=== PATIENT | male | born 1990 | race Two or more races ===

== ENCOUNTER 2024-07-31 22:34 | Emergency (ER) | payer BC ==
[2024-07-31] MEDS: Lidocaine 1% 10 ML MDV INJECT ONE (23:26)
[2024-08-01] MEDS: Diphtheria,Pertussis(Acell),Tetanus Vaccine 0.5 ML Syringe IM ONE (00:14)
== END 2024-08-01 01:05 | disposition home or self-care (01) ==
LOC: MW.ED 22:34
DX: S61.211A Laceration without foreign body of left index finger without damage to nail, initial encounter (principal); Z23 Encounter for immunization; Z75.8 Other problems related to medical facilities and other health care; W26.8XXA Contact with other sharp object(s), not elsewhere classified, initial encounter
CPT/HCPCS: 12001; 90471; 90715; 99282; 99282-25; J3490

== ENCOUNTER 2025-02-21 16:23 | Emergency (ER) | payer BC ==
[2025-02-21] MEDS ORDERED: Ketorolac 30 MG/ML SDV IM PRN (16:30)
[2025-02-21] MEDS ORDERED: Acetaminophen 500 MG Tab PO PRN (16:30)
[2025-02-21] MEDS: Ketorolac 30 MG/ML SDV IM ONE (17:28)
[2025-02-21] MEDS: Acetaminophen 500 MG Tab PO ONE (17:29)
== END 2025-02-21 18:36 | disposition home or self-care (01) ==
LOC: MW.ED 16:23
DX: M25.521 Pain in right elbow (principal); M79.631 Pain in right forearm
CPT/HCPCS: 73080; 73090; 96372; 99283; A9270; J1885

== ENCOUNTER 2025-03-25 10:16 | Emergency (ER) | payer BC ==
[2025-03-25] MEDS ORDERED: Sodium Chloride 0.9% 10 ML Syringe FLUSH PRN (10:37)
[2025-03-25] MEDS ORDERED: Sodium Chloride 0.9% 2.5 ML Syringe FLUSH PRN (10:37)
[2025-03-25] MEDS ORDERED: Sodium Chloride 0.9% 20 ML SDV IV PRN (10:37)
[2025-03-25 10:48] LABS: BASOPHILS ABSOLUTE AUTO 0.08 K/uL (0.00-0.20); BASOPHILS PERCENT AUTO 0.9 % (0.0-1.0); EOSINOPHILS PERCENT AUTO 3.3 % (0.0-6.0); HEMATOCRIT 40.1 % (42.0-52.0); HEMOGLOBIN 13.8 g/dL (14.0-18.0); IMMATURE GRAN ABSOLUTE AUTO 0.07 K/uL (0.00-0.05); IMMATURE GRAN PERCENT AUTO 0.8 % (0.0-0.4); LYMPHOCYTES ABSOLUTE AUTO 4.63 K/uL (1.00-4.80); MEAN CORPUSCULAR HEMOGLOBIN 29.7 pg (28.0-32.0); MEAN CORPUSCULAR HGB CONC 34.4 g/dL (32.0-36.0); MEAN CORPUSCULAR VOLUME 86.2 fL (83.0-99.0); MEAN PLATELET VOLUME 9.7 fL (9.4-12.4); MONOCYTES ABSOLUTE AUTO 0.68 K/uL (0.00-0.80); MONOCYTES PERCENT AUTO 7.5 % (0.0-8.0); NEUTROPHILS ABSOLUTE AUTO 3.32 K/uL (1.80-7.70); NEUTROPHILS PERCENT AUTO 36.5 % (41.0-71.0); PLATELET COUNT,PLT 238 K/uL (150-400); RED BLOOD CELL COUNT 4.65 M/uL (4.52-5.90); WHITE BLOOD CELL COUNT,WBC 9.08 K/uL (3.9-11.3)
[2025-03-25] MEDS: Sodium Chloride 0.9% 1,000 ML IV ONE (11:01)
[2025-03-25 11:09] LABS: A/G RATIO 1.1 (0.9-1.6); ALANINE AMINOTRANSFERASE,ALT 27 IU/L (14-63); ALBUMIN 3.1 g/dL (3.4-5.0); ALKALINE PHOSPHATASE 65 U/L (46-116); ASPARTATE AMNIOTRANSFERASE,AST 28 IU/L (15-37); BILIRUBIN TOTAL 0.4 mg/dL (0.2-1.0); BLOOD UREA NITROGEN,BUN 17 mg/dL (7.0-18.0); CALCIUM 7.4 mg/dL (8.5-10.1); CARBON DIOXIDE,CO2 24.1 mmol/L (21.0-32.0); CHLORIDE,CL 106 mmol/L (98-107); CREATININE 0.8 mg/dL (0.8-1.3); GLUCOSE RANDOM 128 mg/dL (74-106); MAGNESIUM 1.5 mg/dL (1.8-2.4); POTASSIUM,K 3.1 mmol/L (3.5-5.1); SODIUM,NA 143 mmol/L (136-148)
[2025-03-25 11:10] LABS: D-DIMER QUANTITATIVE 0.35 mg/L FEU (0.00-0.50); INR 1.06 (0.86-1.11); PTT,PARTIAL THROMBOPLSTIN TIME 21.9 SEC (23.9-30.7)
[2025-03-25 11:11] LABS: ESTIMATED GFR 118 mL/min (>60)
[2025-03-25] MEDS: Potassium Chloride 20 MEQ Tab.ER PO ONE (12:24)
[2025-03-25] MEDS: Magnesium Sulfate 2 GM/50 mL 2 GM in Premix Bag 1 BAG IV ONE (12:25)
[2025-03-25] MEDS: Potassium Chloride 10 MEQ in Premix Bag 1 BAG IV SCH (12:56)
[2025-03-25] MEDS: Sodium Chloride 0.9% 500 ML IV ONE (12:58)
[2025-03-25] MEDS: Calcium Carbonate 500 MG Tab.Chew PO ONE (13:54)
== END 2025-03-25 14:55 | disposition left against medical advice (07) ==
LOC: MW.ED 10:16
DX: R55 Syncope and collapse (principal)
CPT/HCPCS: 36415; 70450; 71045; 80053; 83735; 84484; 85025; 85379; 85610; 85730; 93005; 96361; 96365; 96367; 99285; A9270; J3475; J3480; J7030; J7040